=== PATIENT | male | born 1965 | race African-American/Black ===

== ENCOUNTER 2016-07-27 18:29 | Emergency (ER) | payer OTHER ==
[~2016-07-27] VITALS: Ht 182.9 cm; Wt 176.4 kg
[2016-07-27] MEDS ORDERED: CIALIS20 M1 PO (20:48)
[2016-07-27] MEDS ORDERED: NASONEX17 GM NASB (20:48)
[2016-07-27] MEDS ORDERED: VITAMIN B-121000 MC3 PO (20:48)
[2016-07-27 20:57] VITALS: BP 162/88
--- NOTE | 2016-07-27 21:13 | ED HAND/WRIST INJURY COMPLAINT ---
History of Present Illness General Chief Complaint: Laceration Procedure Stated Complaint: LAC TO L HAND Source: patient Exam Limitations: no limitations Vital Signs & Intake/Output Vital Signs & Intake/Output Vital Signs Date Time Temp Pulse Resp B/P B/P Pulse O2 O2 Flow FiO2 Mean Ox Delivery Rate 07/27 2056 97.8 77 20 162/88 07/27 2022 96.8 86 20 161/90 96 Room Air 07/28 1851 98.3 89 18 152/74 100 Room Air Allergies Coded Allergies: No Known Allergies (07/27/16) Reconcile Medications Cyanocobalamin (Vitamin B-12) (Unknown Strength) TABLET (Unknown Dose) PO DAILY SUPPLEMENT (Reported) Mometasone Furoate (Nasonex) 50 MCG SPRAY.PUMP 2 SPRAY NASB DAILY ALLERGIES ( Reported) Tadalafil (Cialis) 20 MG TABLET 1 TAB PO PRN ED (Reported) Triage Note: PT TO ED FOR THREE SMALL LACS TO LAST THREE FINGERS ON L HAND, STATING HE WAS MAKING SPANISH FRIES AT HOME AND CUT HIS FINGERS. FINGERS WRAPPED WITH PRESSURE DRESSING IN TRIAGE. UNSURE OF LAST TETANUS SHOT. Triage Nurses Notes Reviewed? yes Occurred: this evening Duration: hour(s):, constant, continues in ED Timing: single episode today Injury Environment: home Severity: mild, moderate Severity Numbers: 6 Pain/Injury Location: Left: Hand, 3rd finger, 4th finger, 5th finger. Context: incision Method of Injury: laceration No Modifying Factors: none Associated Symptoms: none HPI: 50-year-old male with no significant past medical history presents with a laceration to the left hand third fourth and fifth digits. Laceration occurred earlier today 2 hours before presentation. Patient was cutting potatoes with a knife and accidentally hit the third fourth and fifth digits on the left hand. Patient reports significant amount of bleeding and pain in the area. He immediately washed the area and placed a bandage and came to the ED. He does not take any blood thinners and is not up-to-date on tetanus. He denies any other injuries. (ERICK ROWLEY) Past History Travel History Traveled to [place] past 21 day No Medical History Any Pertinent Medical History? see below for history Neurological: NONE EENT: NONE Cardiovascular: NONE Respiratory: NONE Gastrointestinal: NONE Hepatic: NONE Renal: NONE Musculoskeletal: NONE Psychiatric: NONE Endocrine: NONE Blood Disorders: NONE Cancer(s): NONE Surgical History Surgical History: non-contributory Psychosocial History What is your primary language Italian Tobacco Use: Never used ETOH Use: denies use Illicit Drug Use: denies illicit drug use Family History Hx Contributory? No (ERICK ROWLEY) Review of Systems Review of Systems Constitutional: Reports: no symptoms. EENTM: Reports: no symptoms. Respiratory: Reports: no symptoms. Cardiovascular: Reports: no symptoms. GI: Reports: no symptoms. Genitourinary: Reports: no symptoms. Musculoskeletal: Reports: see HPI (LEFT HAND PAIN). Skin: Reports: no symptoms. Neurological/Psychological: Reports: no symptoms. Hematologic/Endocrine: Reports: no symptoms. Immunologic/Allergic: Reports: no symptoms. All Other Systems: Reviewed and Negative (ERICK ROWLEY) Physical Exam Physical Exam General Appearance: well developed/nourished, no apparent distress, alert, awake , anxious Head: atraumatic, normal appearance Eyes: Bilateral: normal appearance, PERRL, EOMI. Ears, Nose, Throat: normal ENT inspection, hearing grossly normal Neck: normal inspection Cardiovascular/Respiratory: normal breath sounds, regular rate/rhythm, no respiratory distress Back: normal inspection Shoulder Left: normal range of motion, normal inspection Shoulder Right: normal range of motion, normal inspection Elbow Left: normal range of motion, normal inspection Elbow Right: normal range of motion, normal inspection Forearm Left: normal range of motion, normal inspection Forearm Right: normal range of motion, normal inspection Wrist Left: normal range of motion, normal inspection Wrist Right: normal range of motion, normal inspection Hand Left: lacerations, evidence of injury, 3rd finger (1 CM SUPERFICAL LAC DISTAL), 4th finger (1 CM SUPERFICIAL LAC DISTAL ), 5th finger (1CM SUPERFICAL LAC DISTAL), THERE ARE SUPERFICIAL 1 CM LACERATIONS LOCATED AT THE DISTAL SEGMENT OF THE THIRD FOURTH AND FIFTH DIGITS. nO FOREIGN BODIES. fULL RANGE OF MOTION. nEUROVASCULAR SUPPLY IS INTACT. Hand Right: normal inspection, normal range of motion Neurologic/Tendon: normal sensation, normal motor functions, normal tendon functions, responds to pain, no evidence tendon injury, no pulse deficit Skin: intact, normal color, warm/dry (ERICK ROWLEY) Progress Differential Diagnosis: abscess, cellulitis, fracture, sprain, tenosynovitis, LACERATION Plan of Care: Current Medications Sig/Chris Start time Last Medication Dose Stop Time Status Admin Tetanus/Diphtheria 0.5 ML ONCE ONE 07/27 2114 AC Toxoids Adsorbed 07/28 2115 (Decavac) Wounds were flushed with sterile water and Betadine applied. Bacitracin and sterile dressings applied to wounds on the third and fourth digit. Fifth digit wound was closed with Steri-Strips and Dermabond. (ERICK ROWLEY) Departure Departure Disposition: HOME OR SELF CARE Condition: Stable Clinical Impression Primary Impression: Laceration of finger of left hand Referrals: MARIZOL AMADOR MD (PCP/Family) Additional Instructions: Keep the hand clean and dry. Change dressing once daily and apply bacitracin for the next 3 or 4 days. After that leave the area open as much as possible to let it air dry. Steri-Strips and glue will come off on their own in 3 or 4 days. Use Tylenol thousand milligrams every 6 hours as needed for pain. Monitor the area for signs of infection such as redness pain swelling discharge. Return to the emergency department or follow-up with her primary care doctor with any concerns. Departure Forms: Customer Survey General Discharge Information Comments No written by josefina granda with my supervision (ERICK ROWLEY) PA/CHURCH WORKER Co-Sign Statement Statement: ED Attending supervision documentation- [] I saw and evaluated the patient. I have also reviewed all the pertinent lab results and diagnostic results. I agree with the findings and the plan of care as documented in the PA's/CHURCH WORKER's documentation. [X] I have reviewed the ED Record and agree with the PA's/CHURCH WORKER's documentation. [] Additions or exceptions (if any) to the PAs/CHURCH WORKER's note and plan are summarized below: [] (CHRISTOPHER CASTELLON,SO Gunter) Procedures Laceration/Wound Repair Laceration/Wound Repair: Wound Location: upper extremity (LEFT HAND ) Wound's Depth, Shape: superficial Wound Length (cm): 1 Wound Explored: clean, no foreign body removed Irrigated w/ Saline (ccs): 200 Betadine Prep? Yes Anesthesia: NONE Volume Anesthetic (ccs): 0 Wound Debrided: NONE Wound Repaired With: Steri-strips, Dermabond Layer Closure? No Sterile Dressing Applied: Yes Splint Applied? No By Who? by me Sling Applied? No Tetanus Status: not up to date Progress: Wounds were irrigated with sterile water. Bacitracin was applied wounds on the third and fourth digits were dressed with a sterile dressing and bacitracin. Wound on the fifth digit was closed with Steri-Strips and Dermabond. A sterile dressing was placed over the fifth digit. Patient tolerated procedure well without any complications tetanus was updated. (CANDACE TEMPLE,ERICK)
== END 2016-07-27 21:34 ==
LOC: ERH 18:29
DX: S61.213A Laceration without foreign body of left middle finger without damage to nail, initial encounter (principal); S61.215A Laceration without foreign body of left ring finger without damage to nail, initial encounter; S61.217A Laceration without foreign body of left little finger without damage to nail, initial encounter; W26.0XXA Contact with knife, initial encounter; Y93.G1 Activity, food preparation and clean up
CPT/HCPCS: 90471; 90714